=== PATIENT | female | born 1970 | race Caucasian/White ===

== ENCOUNTER 2017-05-15 14:55 | Emergency (ER) | payer BC ==
[2017-05-15] MEDS ORDERED: HYDROcodone/ACETAMINOPHEN 1 EACH TABLET PO ONE (15:15)
[2017-05-15] MEDS ORDERED: HYDROcodone/ACETAMINOPHEN 1 EACH TABLET ONE (15:18)
[2017-05-15] MEDS ORDERED: LIDOCAINE HCL 20 ML VIAL ONE (15:18)
[2017-05-15] MEDS ORDERED: DIPHTH,PERTUSS(ACELL),TET VAC 0.5 ML VIAL IM ONE ×2 (15:32→15:59)
[2017-05-15 16:05] VITALS: BP 134/86
--- NOTE | 2017-05-15 16:13 | ERNOTE ---
Upper Extremity HPI - Narrative Date of Service: 05/15/17 - General Extremities Pain Location: 2nd finger: left, 3rd finger: left Time Seen by Provider: 05/15/17 15:11 Source: patient, RN notes reviewed - Immun/Allergies/Home Medications Immunizations: IMMUNIZATION HX Immunizations Up to Date Yes Allergies/Adverse Reactions: Allergies Allergy/AdvReac Type Severity Reaction Status Date / Time No Known Allergies Allergy Unverified 05/15/17 15:00 - History of Present Illness Narrative: Dona is a 47 year old female who presents to the ED for lacerations on the index and middle fingers of her left hand. She cut herself at home while using an electric trimmer sawyer. She is unsure of when she last had a tetanus vaccination. She took a Vicodin before she left the house, but reports needing something additional for pain. 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 Occurred: just prior to arrival Location of Incident: home Severity: mild Associated Symptoms: Denies: tingling, weakness, numbness distally Other Injuries: Reports: none Prior Treament: Denies: recently seen Review of Systems - Review of Systems Constitutional: Absent: recent illness, fever EYE: Present: no symptoms reported ENT: Present: no symptoms reported Respiratory: Present: no symptoms reported Cardiology: Present: no symptoms reported Gastrointestinal/Abdominal: Present: no symptoms reported Genitourinary: Present: no symptoms reported Musculoskeletal: Absent: joint pain, joint swelling Skin: Absent: rash, lesions, lumps, change in color Neurological: Absent: weakness, numbness, tingling Endocrine: Present: no symptoms reported Hematologic/Lymphatic: Absent: easy bruising, easy bleeding Psych: Present: no symptoms reported - Patient's Past Medical History Patient History - Medical: No pertinent hx Patient History - Cardiac/Respiratory: No pertinent hx Patient History - Cancer: No Hx of Cancer Patient History - Surgical Procedures: No surgical history Patient History - Other: None LMP (females 10-50): Menopausal - Social History Living Situations: home Psych History: No pertinent hx Smoking Status: Never smoker Alcohol Use: occasionally Drug Use: none - Immunizations Immunizations Up to Date: No Physical Exam - Physical Exam General Appearance: Present: wd/wn, alert, mild distress, anxious Head Exam: Present: normal inspection, no evidence of injury Respiratory: Present: no respiratory distress, no accessory muscle use Cardiovascular/Chest: Present: normal peripheral pulses Extremity Exam: Present: normal except - - Left hand lacerations, normal range of motion, no edema Neurological Exam: Present: alert, oriented, normal mood/affect, no motor/ sensory deficits Skin Exam: Present: normal color, warm/dry ED Progress - Vital Signs Patient's Vital Signs:: I have reviewed the patient's vital signs. Vital Signs: Vital Signs 05/15/17 14:58 Temperature 36.4 C L Pulse Rate 111 H Respiratory 17 Rate Blood Pressure 128/83 O2 Sat by Pulse 98 Oximetry - Progress/Reassessment Chief Complaint: Laceration Progress:: Improved Procedures Left Distal Volar Finger 3rd Digit Anesthesia: 1% Lidocaine Length of Repair/Wound (cm): 1 Wound's Depth/Shape: into subcutaneous, irregular, contused tissue Wound Explored: clean, to base, in bloodless field, no foreign body Wound Intervention: multiple flaps aligned Distal NVT: neuro/vasc intact, no tendon injury Wound Repaired With: sutures Suture Size/Type: 4-0, nylon Number of Sutures: 3 Layer Closure: Simple Wound Dressing: sterile dressing applied Complications: Pt mario procedure well Left distal volar index finger Anesthesia: 1% Lidocaine Length of Repair/Wound (cm): 1 Wound's Depth/Shape: into subcutaneous, irregular, contused tissue Wound Explored: clean, to base, in bloodless field, no foreign body Wound Intervention: irrigated w/saline Distal NVT: neuro/vasc intact, no tendon injury Wound Repaired With: sutures Suture Size/Type: 4-0, nylon Number of Sutures: 2 Layer Closure: Simple Wound Dressing: sterile dressing applied Complications: Pt mario procedure well Left dorsal proximal index finger Anesthesia: 1% Lidocaine Length of Repair/Wound (cm): 1 Wound's Depth/Shape: into subcutaneous, flap Wound Explored: clean, to base, in bloodless field, no foreign body Wound Intervention: irrigated w/saline Distal NVT: neuro/vasc intact, no tendon injury Wound Repaired With: sutures Suture Size/Type: 4-0, nylon Number of Sutures: 1 Layer Closure: Simple Wound Dressing: sterile dressing applied Complications: Pt mario procedure well Departure Clinical Impression: Laceration of fingers without complication Qualifiers: Encounter type: initial encounter Qualified Code(s): S61.219A - Laceration without foreign body of unspecified finger without damage to nail, initial encounter - Departure Disposition: Home Follow Up Needed Condition: Stable Instructions: Sutured Wound Care, [id number], Form - Excuse from Work, School , or Physical Activity Additional Instructions: Keep dressing in place and dry for 24 hours You can then wash the wound gently with soap and water as needed but do not soak in water for prolonged periods of time Apply antibiotic ointment and bandage as needed Have sutures removed in 7 days
== END 2017-05-15 16:14 | disposition home or self-care (01) ==
LOC: ER 14:55
PROC: 0JQK0ZZ Repair Left Hand Subcutaneous Tissue and Fascia, Open Approach (ICD-10-PCS; principal; 2017-05-15)
DX: S61.211A Laceration without foreign body of left index finger without damage to nail, initial encounter (principal); S61.213A Laceration without foreign body of left middle finger without damage to nail, initial encounter; W29.3XXA Contact with powered garden and outdoor hand tools and machinery, initial encounter; Y93.H2 Activity, gardening and landscaping; Y92.007 Garden or yard of unspecified non-institutional (private) residence as the place of occurrence of the external cause; Z23 Encounter for immunization